=== PATIENT | male | born 1970 | race Caucasian/White ===

== ENCOUNTER 2018-12-20 16:05 | Emergency (ER) | payer OTHER ==
[2018-12-20] MEDS ORDERED: Ketorolac Tromethamine 30 MG/ML VIAL ONE (16:28)
--- NOTE | 2018-12-20 16:56 | RAD ---
Exam:3 views right wrist HISTORY: Pain. Swelling, x2 months COMPARISON: None FINDINGS: Radiocarpal and intercarpal joint spaces are preserved. No fracture. No cortical irregularity. No periosteal reaction. IMPRESSION: Unremarkable 3 views right wrist.
== END 2018-12-20 17:10 | disposition home or self-care (01) ==
LOC: ERS 16:05
DX: M25.531 Pain in right wrist (principal); F17.210 Nicotine dependence, cigarettes, uncomplicated
CPT/HCPCS: 96372; J1885